=== PATIENT | male | born 1965 | race Caucasian/White ===

== ENCOUNTER 2021-03-23 09:07 | Day surgery (SDC) | payer OTHER ==
[2021-03-17 15:51] LABS: BASOPHILS # (AUTO) 0.1 X10'3 (0-0.2); BASOPHILS % (AUTO) 0.8 % (0-1); EOSINOPHILS # (AUTO) 0.2 X10'3 (0-0.9); EOSINOPHILS % (AUTO) 3.4 % (0-6); LYMPHOCYTES # (AUTO) 1.4 X10'3 (1.1-4.8); LYMPHOCYTES % (AUTO) 20.3 % (21-51); MEAN CORPUSCULAR HGB CONC 34.6 g/dL (33.0-36.5); MEAN CORPUSCULAR VOLUME 83.8 FL (78-98); MONOCYTES # (AUTO) 0.7 X10'3 (0-0.9); MONOCYTES % (AUTO) 10.6 % (2-12); NEUTROPHILS # (AUTO) 4.4 X10'3 (1.8-7.7); NEUTROPHILS % (AUTO) 64.9 % (42-75); PRE OP HEMATOCRIT 38.4 % (42.0-52.0); PRE OP HEMOGLOBIN 13.3 g/dL (14.0-17.9); PRE OP PLATELET COUNT 374 X10'3 (140-440); RED BLOOD COUNT 4.58 X10'6 (4.70-6.10); RED CELL DISTRIBUTION WIDTH 13.2 % (11.5-14.5)
[2021-03-17 15:51] LABS: CLARITY,URINE CLEAR (Clear); COLOR,URINE YELLOW (Yellow); GLUCOSE, URINE NEGATIVE (Neg); KETONES,URINE NEGATIVE (Neg); LEUKOCYTE ESTERASE ,URINE NEGATIVE (Neg); NITRITES, URINE NEGATIVE (Neg); OCCULT BLOOD,URINE NEGATIVE (Neg); PH,URINE 5.5 (4.8-8.0); PROTEIN,URINE NEGATIVE (Neg); UROBILINOGEN,URINE 0.2 E.U/dL (0.2-1.0)
[2021-03-17 15:56] LABS: UA COLLECTION TYPE CLN CATCH MIDSTREAM
[2021-03-17 16:05] LABS: ALBUMIN 3.1 G/DL (3.4-5.0); ALBUMIN/GLOBULIN RATIO 0.9 (1.1-1.5); ALKALINE PHOSPHATASE 74 IU/L (46-116); BLOOD UREA NITROGEN 12 MG/DL (7-18); BUN/CREATININE RATIO 13.8 (5.4-32.0); CALCIUM 8.5 MG/DL (8.5-10.1); CHLORIDE 103 MMOL/L (99-107); CREATININE 0.87 MG/DL (0.60-1.10); PRE OP ALT 25 U/L (30-65); PRE OP ANION GAP 3 (8-16); PRE OP AST 14 U/L (10-37); PRE OP BILIRUB, TOTAL 0.3 MG/DL (0.0-1.0); PRE OP GLUCOSE 125 MG/DL (70-104); PRE OP POTASSIUM 4.6 MMOL/L (3.4-5.1); PRE OP SODIUM 139 MMOL/L (135-145); TOTAL CARBON DIOXIDE 32.7 MMOL/L (24-32); TOTAL PROTEIN 6.5 G/DL (6.4-8.2); eGFR > 90 ML/MIN
[2021-03-23] VITALS (11 sets, daily range): BP systolic 118–137; BP diastolic 49–87
[~2021-03-23] VITALS: Ht 182.9 cm; Wt 106.0 kg
[~2021-03-23 09:07] MED LIST: ACET-1059 PO; POLY119P2 PO; cefazolin/dext.iso 2gm/50ml IV ONE; famotidine 20mg tablet PO ONE; ringers solution, lacted 1,000 ML IV SCH; vancomycin 1,500 MG in NS 300ml IV soln IV ONE
[2021-03-23] MEDS ORDERED: meperidine/PF 25mg/ml syringe IV PRN ×3 (09:40)
[2021-03-23] MEDS ORDERED: ringers solution, lacted 1,000 ML IV SCH (09:40)
[2021-03-23] MEDS ORDERED: morphine 2 MG/ML inj. syringe IV PRN (09:40)
[2021-03-23] MEDS ORDERED: proCHLORperazine 10 MG/2 ml inj IV PRN (09:40)
[2021-03-23] MEDS ORDERED: ondansetron/PF 4mg/2ml inj IV PRN (09:40)
[2021-03-23] MEDS ORDERED: morphine 4 MG/ML inj SYRINge IV PRN (09:40)
[2021-03-23] MEDS ORDERED: LIDOcaine 2% (20mg/ml) 5ml vial ONE (11:09)
[2021-03-23] MEDS ORDERED: MIDAZolam 1 MG/ML 5ML VIAL ONE (11:09)
[2021-03-23] MEDS ORDERED: fentaNYL/PF 50MCG/1 ML 2ML syringe ONE (11:09)
[2021-03-23] MEDS ORDERED: propofol inj 20 ML IV ONE ×2 (11:09→12:06)
[2021-03-23] MEDS ORDERED: ROPIVAcaine 0.2%/PF PUMP/bolus 545 ML POPLITEAL SCH ×2 (11:10→12:40)
[2021-03-23] MEDS ORDERED: ROPIVAcaine 0.2% (10 MG/5 ML) BOLUS INJECTION POPLITEAL PRN ×2 (11:10→12:40)
[2021-03-23] MEDS ORDERED: BUPIVAcaine/PF 7.5mg/ml (0.75%) 10ml vial ONE (11:44)
[2021-03-23] MEDS ORDERED: ROPIVAcaine 0.5% (5mg/ml) 30ml vial ONE (11:44)
[2021-03-23] MEDS ORDERED: dexamethasone sod phosphate 4mg/ml inj. ONE (12:07)
[2021-03-23] MEDS: bacitracin 15gm ointment TP ONE ×2 (12:25→12:34)
[2021-03-23] MEDS ORDERED: meperidine/PF 25mg/ml syringe ONE (14:03)
--- NOTE | 2021-03-23 14:57 | NUR ---
Received from OR via [facility], accompanied by Anesthesiologist DR BARRIOS and report given by Anesthesiologist AND SNATH HANDLE ASSEMBLER. PT VERY DROWSY, NO S/S OF DISTRESS/DISCOMFORT. LEFT FOOT/ANKLE UP TO BELOW KNEE W/SPLING ON W/PASHA WRAP COVERING CDI. TOES PWD, TELESALES ADVISOR 1-2 SECONDS. Addendum: 03/23/21 at 1519 by Lisa Peraza RN Amended: Links added.
--- NOTE | 2021-03-23 16:57 | NUR ---
PT AWAKE, COMFORTABLE, TOLERATING PO FLUIDS. DC INSTRUCTIONS GIVEN AND GONE OVER W/PT WHO VERBALIZED UNDERSTANDING. PT D/CD TO HOME VIA W/C TO PRIVATE VEHICLE W/O INCIDENT. Addendum: 03/23/21 at 1731 by Lisa Peraza RN Amended: Links added.
== END 2021-03-23 16:57 | disposition home or self-care (01) ==
LOC: PAS 09:07
PROVIDERS: ATTEND Podiatrist Foot & Ankle Surgery
DX: S82.842A Displaced bimalleolar fracture of left lower leg, initial encounter for closed fracture (principal); S93.422A Sprain of deltoid ligament of left ankle, initial encounter; M25.372 Other instability, left ankle; G89.18 Other acute postprocedural pain; F17.210 Nicotine dependence, cigarettes, uncomplicated; J44.9 Chronic obstructive pulmonary disease, unspecified; E66.01 Morbid (severe) obesity due to excess calories; Z68.31 Body mass index [BMI] 31.0-31.9, adult; Z20.822 Contact with and (suspected) exposure to COVID-19; Z79.899 Other long term (current) drug therapy; V29.9XXA Motorcycle rider (driver) (passenger) injured in unspecified traffic accident, initial encounter; Y93.89 Activity, other specified; Y92.89 Other specified places as the place of occurrence of the external cause; Y99.8 Other external cause status
CPT/HCPCS: 27695; 27814; 27829; 36415; 64446; 64447; 71046; 73610; 76000; 76942; 80053; 81003; 82948; 85025; 93005; A6223; C1713; J0690; J1100; J2175; J2250; J2704; J2795; J3010; J3370; J3490; J7030; J7040; J7120; U0003; U0005; Z7506; Z7508; Z7512; A4215; A4618; A6253; A6449; A7000

== ENCOUNTER 2024-02-27 10:13 | Inpatient (IN) | payer OTHER ==
[~2024-02-27] VITALS: Ht 182.9 cm; Wt 104.0 kg
[~2024-02-27 10:13] MED LIST changes: -cefazolin/dext.iso 2gm/50ml IV ONE; -famotidine 20mg tablet PO ONE; -ringers solution, lacted 1,000 ML IV SCH; -vancomycin 1,500 MG in NS 300ml IV soln IV ONE
[2024-02-27 10:43] LABS: BASOPHILS # (AUTO) 0.1 X10'3 (0-0.2); BASOPHILS % (AUTO) 0.6 % (0-1); EOSINOPHILS % (AUTO) 0.1 % (0-6); HEMATOCRIT 45.8 % (42.0-52.0); HEMOGLOBIN 14.9 g/dl (14.0-17.9); LYMPHOCYTES # (AUTO) 1.3 X10'3 (1.1-4.8); LYMPHOCYTES % (AUTO) 12.9 % (21-51); MEAN CORPUSCULAR HEMOGLOBIN 27.5 PG (27.0-31.0); MEAN CORPUSCULAR HGB CONC 32.5 g/dL (33.0-36.5); MEAN CORPUSCULAR VOLUME 84.7 FL (78-98); MEAN PLATELET VOLUME 7.7 FL (7.4-10.4); MONOCYTES % (AUTO) 9.4 % (2-12); PLATELET COUNT 256 X10'3 (140-440); RED CELL DISTRIBUTION WIDTH 15.6 % (11.5-14.5); WHITE BLOOD COUNT 10.4 X10'3 (4.5-11.0)
[2024-02-27 10:58] LABS: ALANINE AMINOTRANSFERASE 22 U/L (12-78); ALBUMIN 3.5 G/DL (3.4-5.0); ALBUMIN/GLOBULIN RATIO 1.1 (1.1-1.5); ALKALINE PHOSPHATASE 63 IU/L (46-116); ANION GAP 4 (8-16); ASPARTATE AMINO TRANSFERASE 6 U/L (10-37); BILIRUBIN,TOTAL 0.3 MG/DL (0.1-1.0); BLOOD UREA NITROGEN 20 MG/DL (7-18); BUN/CREATININE RATIO 26.7 (10.0-20.0); CALCIUM 8.9 MG/DL (8.5-10.1); CHLORIDE 100 MMOL/L (99-107); CREATININE 0.75 MG/DL (0.60-1.10); GLUCOSE 153 MG/DL (70-104); POTASSIUM 4.8 MMOL/L (3.5-5.1); SODIUM 137 MMOL/L (135-145); TOTAL CARBON DIOXIDE 33.3 MMOL/L (24-32); TOTAL PROTEIN 6.8 G/DL (6.4-8.2); eCRCL 119 ML/MIN; eGFR > 90 ML/MIN
[2024-02-27 11:05] LABS: PRO BRAIN NATRIURETIC PEPTIDE 189 PG/ML (0-125)
[2024-02-27] MEDS ORDERED: ipratropium/albuterol 3ml nebule NEB PRN (11:20)
[2024-02-27] MEDS: ipratropium/albuterol 3ml nebule NEB ONE (11:47)
[2024-02-27] MEDS: predniSONE 20 mg tablet PO ONE (11:47)
[2024-02-27 11:48] VITALS: PULSE 88; RESP 20; O2SAT 90
[2024-02-27] MEDS ORDERED: mag hydrox/Alum hydrox/simeth 30ml oral suspension PO PRN (11:55)
[2024-02-27] MEDS ORDERED: potassium Cl 40MEQ/1/2NS 520ml 520 ML IV PRN (11:55)
[2024-02-27] MEDS ORDERED: potassium Cl 20 mEq SR tablet PO PRN ×2 (11:55)
[2024-02-27] MEDS ORDERED: magnesium sulf-water 4G/100mL 100 ML IV PRN (11:55)
[2024-02-27] MEDS ORDERED: ondansetron/PF 4mg/2ml inj IV PRN (11:55)
[2024-02-27] MEDS ORDERED: magnesium Cl slow-release 64mg tablet PO PRN (11:55)
[2024-02-27] MEDS ORDERED: acetaminophen 325mg tablet PO PRN (11:55)
[2024-02-27] MEDS ORDERED: magnesium sulf-water 2g/50mL 50 ML IV PRN (11:55)
[2024-02-27] MEDS ORDERED: magnesium hydroxide 30ml (MOM) UD suspension PO PRN (11:55)
[2024-02-27 12:01] VITALS: PULSE 83; RESP 18; O2SAT 93
[2024-02-27 12:26] LABS: HEMOGLOBIN A1C 5.9 % (4.5-6.2)
[2024-02-27] MEDS: K and/or MAG REPLACEMENT MC SCH (20:00)
[2024-02-27] MEDS: docusate sod 100mg capsule PO SCH (20:00)
[2024-02-27] MEDS: methylPREDNISolone sod succ/PF 40mg inj. IV SCH (20:21)
[2024-02-27] MEDS: heparin, porcine 5000 units/ml vial SQ SCH (20:22)
[2024-02-27 20:30] VITALS: PULSE 101; RESP 16; O2SAT 93
[2024-02-27] MEDS: albuterol 2.5 MG/3 ML nebule NEB PRN (22:05)
[2024-02-27 22:06] VITALS: PULSE 90; RESP 20; O2SAT 93
[2024-02-27 22:11] VITALS: PULSE 99; RESP 20
[2024-02-28] VITALS (11 sets, daily range): BP systolic 121–149; BP diastolic 64–88; PULSE 88–110; RESP 16–24; TEMP 97.4–98; O2SAT 91–100
[2024-02-28] MEDS ORDERED: UNABLE TO OBTAIN (03:07)
[2024-02-28 03:14] LABS: BASOPHILS % (AUTO) 0.1 % (0-1); EOSINOPHILS % (AUTO) 0 % (0-6); HEMATOCRIT 45.2 % (42.0-52.0); HEMOGLOBIN 14.6 g/dl (14.0-17.9); LYMPHOCYTES # (AUTO) 0.6 X10'3 (1.1-4.8); MEAN CORPUSCULAR HEMOGLOBIN 27.2 PG (27.0-31.0); MEAN CORPUSCULAR HGB CONC 32.4 g/dL (33.0-36.5); MEAN CORPUSCULAR VOLUME 84.1 FL (78-98); MEAN PLATELET VOLUME 7.4 FL (7.4-10.4); MONOCYTES # (AUTO) 0.3 X10'3 (0-0.9); MONOCYTES % (AUTO) 3.5 % (2-12); NEUTROPHILS % (AUTO) 89.4 % (42-75); PLATELET COUNT 248 X10'3 (140-440); RED BLOOD COUNT 5.37 X10'6 (4.70-6.10); WHITE BLOOD COUNT 8.9 X10'3 (4.5-11.0)
[2024-02-28 03:31] LABS: ALANINE AMINOTRANSFERASE 23 U/L (12-78); ALBUMIN 3.2 G/DL (3.4-5.0); ALKALINE PHOSPHATASE 59 IU/L (46-116); ANION GAP 3 (8-16); ASPARTATE AMINO TRANSFERASE 4 U/L (10-37); BILIRUBIN,TOTAL 0.2 MG/DL (0.1-1.0); BLOOD UREA NITROGEN 20 MG/DL (7-18); BUN/CREATININE RATIO 23.8 (10.0-20.0); CALCIUM 9.1 MG/DL (8.5-10.1); CHLORIDE 98 MMOL/L (99-107); CREATININE 0.84 MG/DL (0.60-1.10); GLUCOSE 159 MG/DL (70-104); MAGNESIUM 2.3 MG/DL (1.5-2.4); POTASSIUM 5.1 MMOL/L (3.5-5.1); SODIUM 137 MMOL/L (135-145); TOTAL CARBON DIOXIDE 36.5 MMOL/L (24-32); TOTAL PROTEIN 6.4 G/DL (6.4-8.2); eCRCL 106 ML/MIN; eGFR > 90 ML/MIN
[2024-02-28] MEDS: ipratropium/albuterol 3ml nebule NEB SCH (08:41)
[2024-02-28] MEDS: acetaminophen 325mg tablet PO PRN (09:26)
[2024-02-28] MEDS ORDERED: ALB0.5UD IH (13:53)
[2024-02-29 04:47] VITALS: PULSE 95; RESP 18; O2SAT 96
[2024-02-29 04:51] VITALS: PULSE 99; RESP 18
[2024-02-29 06:00] VITALS: BP 126/70; PULSE 66; RESP 18; TEMP 98.2; O2SAT 91
[2024-02-29 06:12] LABS: BASOPHILS # (AUTO) 0.1 X10'3 (0-0.2); BASOPHILS % (AUTO) 0.7 % (0-1); EOSINOPHILS % (AUTO) 0 % (0-6); HEMATOCRIT 45.4 % (42.0-52.0); HEMOGLOBIN 14.5 g/dl (14.0-17.9); LYMPHOCYTES % (AUTO) 9.5 % (21-51); MEAN CORPUSCULAR HEMOGLOBIN 26.9 PG (27.0-31.0); MEAN CORPUSCULAR HGB CONC 31.9 g/dL (33.0-36.5); MEAN CORPUSCULAR VOLUME 84.3 FL (78-98); MEAN PLATELET VOLUME 7.8 FL (7.4-10.4); MONOCYTES # (AUTO) 0.8 X10'3 (0-0.9); MONOCYTES % (AUTO) 7.8 % (2-12); NEUTROPHILS # (AUTO) 8.6 X10'3 (1.8-7.7); PLATELET COUNT 258 X10'3 (140-440); RED BLOOD COUNT 5.38 X10'6 (4.70-6.10); RED CELL DISTRIBUTION WIDTH 15.4 % (11.5-14.5); WHITE BLOOD COUNT 10.5 X10'3 (4.5-11.0)
[2024-02-29 06:40] LABS: ALANINE AMINOTRANSFERASE 19 U/L (12-78); ALBUMIN 3.2 G/DL (3.4-5.0); ALKALINE PHOSPHATASE 60 IU/L (46-116); ANION GAP 5 (8-16); ASPARTATE AMINO TRANSFERASE 4 U/L (10-37); BILIRUBIN,TOTAL 0.2 MG/DL (0.1-1.0); BLOOD UREA NITROGEN 21 MG/DL (7-18); BUN/CREATININE RATIO 25.9 (10.0-20.0); CALCIUM 9.2 MG/DL (8.5-10.1); CHLORIDE 97 MMOL/L (99-107); CREATININE 0.81 MG/DL (0.60-1.10); GLUCOSE 223 MG/DL (70-104); MAGNESIUM 2.2 MG/DL (1.5-2.4); POTASSIUM 4.7 MMOL/L (3.5-5.1); SODIUM 137 MMOL/L (135-145); TOTAL CARBON DIOXIDE 35.1 MMOL/L (24-32); TOTAL PROTEIN 6.3 G/DL (6.4-8.2); eCRCL 110 ML/MIN; eGFR > 90 ML/MIN
[2024-02-29 09:52] VITALS: PULSE 100; RESP 18; O2SAT 92
[2024-02-29 09:58] VITALS: PULSE 90; RESP 16
[2024-02-29 10:00] VITALS: BP 144/75; PULSE 100; RESP 18; TEMP 98.4; O2SAT 92
[2024-02-29] MEDS ORDERED: FLUT1DIS20 INH (10:53)
[2024-02-29] MEDS ORDERED: PRED10TA23 PO (10:53)
[2024-02-29] MEDS ORDERED: ALBU8HFA INH (10:53)
== END 2024-02-29 11:25 | disposition home or self-care (01) | DRG 189 ==
LOC: ER 10:13 → ED HOLD 11:57 → ORTHO 4S 02-28 13:00
PROVIDERS: ADMIT Internal Medicine; ATTEND Internal Medicine
DX: J96.01 Acute respiratory failure with hypoxia (principal); J44.0 Chronic obstructive pulmonary disease with (acute) lower respiratory infection; J44.1 Chronic obstructive pulmonary disease with (acute) exacerbation; Z20.822 Contact with and (suspected) exposure to COVID-19; J20.9 Acute bronchitis, unspecified; F17.200 Nicotine dependence, unspecified, uncomplicated; Z71.6 Tobacco abuse counseling; Z86.16 Personal history of COVID-19
CPT/HCPCS: 36415; 71045; 80053; 83036; 83735; 83880; 84484; 85025; 87081; 87502; 87503; 87811; 93005; 94640; 94760; 99285; A4615; G0378; J1644; J2919; J7512